=== PATIENT | male | born 1975 | race Caucasian/White ===

== ENCOUNTER 2025-06-23 22:00 | Emergency (ER) | payer OTHER, BC ==
[~2025-06-23] VITALS: Ht 182.9 cm; Wt 113.4 kg
[~2025-06-23 22:00] MED LIST: CEPH500 PO; HYDACE5 PO; IBUP800 PO; PRED20 PO; TRAM50 PO
== END 2025-06-24 00:27 | disposition home or self-care (01) ==
LOC: ER 22:00
DX: S01.01XA Laceration without foreign body of scalp, initial encounter (principal); F10.929 Alcohol use, unspecified with intoxication, unspecified; V68 Occupant of heavy transport vehicle injured in noncollision transport accident
CPT/HCPCS: 12014; 70450; 99283-25